=== PATIENT | male | born 1990 | race American Indian/Alaskan Native ===

== ENCOUNTER 2018-10-09 14:29 | Emergency (ER) | payer BC ==
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
[2018-10-09] MEDS ORDERED: IBUPROFEN PO ONE (18:10)
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
[2018-10-09 18:55] VITALS: BP 128/70
== END 2018-10-09 18:55 | disposition home or self-care (01) ==
LOC: ED 14:29
DX: S13.4XXA Sprain of ligaments of cervical spine, initial encounter (principal); V49.49XA Driver injured in collision with other motor vehicles in traffic accident, initial encounter; Y93.89 Activity, other specified; Y92.89 Other specified places as the place of occurrence of the external cause; Y99.8 Other external cause status
CPT/HCPCS: 72040

== ENCOUNTER 2018-11-20 20:32 | Emergency (ER) | payer BC ==
--- NOTE | 2018-11-20 20:41 | Emergency Department Report ---
Blank Doc - Documentation Documentation: pt states he was playing basketball 1 PM states he was ambulatory with pain right knee pain and edema never injured before no pMHx no allergies to medications non smoker occ drinker no drug use
--- NOTE | 2018-11-20 21:56 | XRay Report ---
PROCEDURE: XR KNEE 3V RT TECHNIQUE: 3 views of the right knee obtained. HISTORY: right knee pain COMPARISONS: None FINDINGS: No acute fracture or dislocation. Joint spaces are maintained. IMPRESSION: No acute fracture or dislocation.. This document is electronically signed by Marvin Holland MD., Nov 20 2018 09:53:49 PM ET
--- NOTE | 2018-11-21 00:34 | Emergency Department Report ---
ED Extremity Problem HPI - General Chief complaint: Extremity Injury, Lower Stated complaint: R KNEE PAIN/EDEMA Time Seen by Provider: 11/20/18 20:40 Source: patient Mode of arrival: Wheelchair Limitations: No Limitations - History of Present Illness Initial comments: 28-year-old -French male presents to the emergency room for right knee pain and swelling. Patient reports that he was playing basketball when he came down and his need went to the side. Patient reports that is very painful to walk. He reports that his knee gives out. Patient denies any past medical history takes no medications on a daily basis and has no known drug allergies. -: hour(s) (11) Location: right, knee History of Same: No -: Yes myalgia, Yes arthralgia Radiation: none Severity scale (0 -10): 8 Quality: aching Consistency: constant Improves with: rest Worsens with: weight bearing, palpation Associated Symptoms: denies other symptoms - Related Data Previous Rx's Medication Instructions Recorded Last Taken Type Cyclobenzaprine [Flexeril] 10 mg PO QHS PRN #10 tablet 10/09/18 Unknown Rx Ibuprofen [Motrin] 600 mg PO Q8H PRN #20 tablet 10/09/18 Unknown Rx Naproxen [Naprosyn] 500 mg PO BID PRN #20 tablet 11/21/18 Unknown Rx traMADol [Ultram 50 MG tab] 50 mg PO Q6HR PRN #8 tablet 11/21/18 Unknown Rx Allergies Allergy/AdvReac Type Severity Reaction Status Date / Time No Known Allergies Allergy Verified 11/20/18 20:37 ED Review of Systems ROS: Stated complaint: R KNEE PAIN/EDEMA Other details as noted in HPI Comment: All other systems reviewed and negative ED Past Medical Hx - Past Medical History Previous Medical History?: No - Surgical History Past Surgical History?: No - Social History Smoking Status: Former Smoker Substance Use Type: None - Medications Home Medications: Home Medications Medication Instructions Recorded Confirmed Last Taken Type Cyclobenzaprine [Flexeril] 10 mg PO QHS PRN #10 tablet 10/09/18 Unknown Rx Ibuprofen [Motrin] 600 mg PO Q8H PRN #20 tablet 10/09/18 Unknown Rx Naproxen [Naprosyn] 500 mg PO BID PRN #20 tablet 11/21/18 Unknown Rx traMADol [Ultram 50 MG tab] 50 mg PO Q6HR PRN #8 tablet 11/21/18 Unknown Rx ED Physical Exam - General Limitations: No Limitations General appearance: alert, in no apparent distress - Head Head exam: Present: atraumatic, normocephalic - Eye Eye exam: Present: normal appearance - ENT ENT exam: Present: mucous membranes moist - Neck Neck exam: Present: normal inspection - Expanded Lower Extremity Exam Right Knee exam: Present: full ROM, tenderness, swelling Lower Leg exam: Present: normal inspection, full ROM. Absent: tenderness Ankle exam: Present: normal inspection, full ROM Foot/Toe exam: Present: normal inspection, full ROM Neuro vascular tendon exam: Present: no vascular compromise Gait: Positive: not tested/not observed ED Course Vital Signs 11/20/18 20:41 Temperature 98.4 F Pulse Rate 63 Respiratory 18 Rate Blood Pressure 141/90 O2 Sat by Pulse 98 Oximetry ED Medical Decision Making - Radiology Data Radiology results: report reviewed Patient: MINI ELISE MR#: [id number] : 1990 Acct:[id number] Age/Sex: 28 / M ADM Date: 11/20/18 Loc: ED Attending Dr: Ordering Physician: RAJAT DIANE Date of Service: 11/20/18 Procedure(s): XR knee 3V RT Accession Number(s): [id number] cc: RAJAT DIANE Fluoro Time In Minutes: PROCEDURE: XR KNEE 3V RT TECHNIQUE: 3 views of the right knee obtained. HISTORY: right knee pain COMPARISONS: None FINDINGS: No acute fracture or dislocation. Joint spaces are maintained. IMPRESSION: No acute fracture or dislocation.. This document is electronically signed by Juan Arthur MD., Nov 20 2018 09:53:49 PM ET Transcribed By: SALLIE Dictated By: JUAN ARTHUR Electronically Authenticated By: JUAN ARTHUR Signed Date/Time: 11/20/182155 DD/ 18 TD/TT: 11/20/182118 Critical care attestation.: If time is entered above; I have spent that time in minutes in the direct care of this critically ill patient, excluding procedure time. ED Disposition Clinical Impression: Swelling of knee joint, right Knee injury Qualifiers: Encounter type: initial encounter Laterality: right Qualified Code(s): S89.91XA - Unspecified injury of right lower leg, initial encounter Knee pain, right Qualifiers: Chronicity: acute Qualified Code(s): M25.561 - Pain in right knee Disposition: DC- TO HOME OR SELFCARE Is pt being admited?: No Does the pt Need Aspirin: No Condition: Stable Instructions: Arthralgia (ED) Additional Instructions: These take pain medication as prescribed. Please do not operate heavy machinery while taking tramadol. It's very important for you to follow up with orthopedic provider I have listed several below for your convenience. Prescriptions: Naproxen [Naprosyn] 500 mg PO BID PRN #20 tablet PRN Reason: Pain , Severe (7-10) traMADol [Ultram 50 MG tab] 50 mg PO Q6HR PRN #8 tablet PRN Reason: Pain Referrals: KANE ELLIOTT MD [Primary Care Provider] - 3-5 Days STACY GUEVARA MD [Staff Physician] - 3-5 Days [facility] [Provider Group] - 3-5 Days Forms: Work/School Release Form(ED)
[2018-11-21] MEDS ORDERED: NORCO 5/325 PO ONE (00:36)
[2018-11-21] MEDS ORDERED: IBUPROFEN PO ONE (00:36)
[2018-11-21 01:36] VITALS: BP 132/86
== END 2018-11-21 01:31 | disposition home or self-care (01) ==
LOC: ED 20:32
DX: S89.91XA Unspecified injury of right lower leg, initial encounter (principal); Z87.891 Personal history of nicotine dependence; W21.05XA Struck by basketball, initial encounter; Y93.67 Activity, basketball; Y92.39 Other specified sports and athletic area as the place of occurrence of the external cause; Y99.8 Other external cause status
CPT/HCPCS: 99283